=== PATIENT | female | born 1990 | race Caucasian/White ===

== ENCOUNTER 2016-11-05 22:50 | Inpatient (IN) | payer OTHER ==
--- NOTE | ~2016-11-05 | DS ---
Unit #: [id number] #: [id number] Patient: [facility]AAVEDRA [id number] [facility] [address] [place] [address] [id number] MR#: [id number] NAME: CHULA SAAVEDRA ROOM: P205 Age: 26 Sex: F Admission Date: 11/05/2016 : 1990 Discharge Date: 11/10/2016 Attending Physician: Augustus Jaeger M.D. Primary Care Physician: Primary Care Physician No DISCHARGE SUMMARY IDENTIFYING DATA Ms. Saavedra is a 26-year-old single white female, who is a resident of [place], [place] and was self-referred to the hospital on a voluntary basis. DISCHARGE DIAGNOSES Psychiatric: Major depressive disorder, recurrent, moderate, without psychotic features; methamphetamine dependence, moderate; inhalant dependence, moderate. Medical: None. Stressors: Moderate psychosocial stressors. HISTORY OF PRESENT ILLNESS Please see initial psychiatric evaluation for details. PAST PSYCHIATRIC HISTORY Please see initial psychiatric evaluation for details. PAST MEDICAL HISTORY Please see initial psychiatric evaluation for details. HOSPITAL COURSE The patient was admitted to the adult chemical dependency and psychiatric unit at [facility] j[facility] and was oriented to the hospital environment. Routine p.r.n. medications were initiated, and she was started on a combination of Celexa and BuSpar to help with the anxiety and was closely monitored. She was initially seen to be withdrawn and seclusive to herself and was not interacting or socializing very much. However, she was taking the medications regularly and was tolerating them fairly well and was able to show a decent and therapeutic response with improvement in depression and anxiety and was denying any suicidal ideations, intent or plan, and was wanting to go home and was willing to continue treatment on an outpatient basis, and as such, it was decided that she will be discharged home and will continue treatment. DISCHARGE MEDICATIONS Celexa 20 mg a day for depression and BuSpar 10 mg b.i.d. for anxiety. DISCHARGE CONDITION Stable. PROGNOSIS Fair. Unit #: [id number] #: [id number] Patient: CHULA SAAVEDRA Dictated by... Brandi Sherwood/romario TD: 11/10/2016 07:08 JOB #: [id number] DISCHARGE SUMMARY Page 1 of 1 X Augustus Jaeger MD DISCHARGE SUMMARY
--- NOTE | ~2016-11-05 | PA ---
Unit #: [id number] #: [id number] Patient: CHULA SAAVEDRA [id number] [facility] [address] [place] [address] [id number] I MR#: [id number] NAME: CHULA SAAVEDRA ROOM: P205 Age: 26 Sex: F Admission Date: 11/05/2016 : 1990 Date of Assessment: 11/06/2016 Attending Physician: Augustus Jaeger M.D. Admitting Physician: Augustus Jaeger M.D. Primary Care Physician: Primary Care Physician No PSYCHIATRIC ASSESSMENT DATE OF SERVICE 11/06/2016. IDENTIFYING DATA Ms. Saavedra is a 26-year-old single white female who is a resident of [place], [place] and was self-referred to the hospital on voluntary basis. CHIEF COMPLAINT "Today, I had a plan to jump off the bridge." HISTORY OF PRESENT ILLNESS Ms. Saavedra is a 26-year-old white female who was brought to the hospital and upon presentation, she stated that she was in a bridge and plan to jump off the bridge after an argument with her boyfriend and reports that she feels like world will be better off without her and reports she smokes methamphetamine and inhaled cans of duster and reports she smokes an 8-ball of methamphetamine on a daily basis and inhaled 2 cans of duster on daily basis and reports the last use of meth was before coming to the hospital and last use of duster was 2 days ago and the patient reports increasing depression, anxiety, irritability, restlessness, argument with her boyfriend earlier today when he told her the world will be better off without her and she reports feelings of hopelessness and helplessness, and suicidal ideation with intent and plan. SUBSTANCE ABUSE HISTORY The patient reports extensive history of substance abuse and dependence including alcohol, cannabis, and cocaine, inhalants, and methamphetamine and benzodiazepines, though it appears that currently methamphetamine and inhalants has been her drug of choice and she has been using both of them on regular basis. PAST PSYCHIATRIC HISTORY The patient has had history of inpatient psychiatric hospitalization at the [facility], at [facility] and review of the medical records indicate that she has been diagnosed and treated for mood disorder and currently she is not active in any treatment program, is not seeing a psychiatrist, and is not taking any psychotropic medications. PAST MEDICAL HISTORY No acute or chronic medical illnesses. ALLERGIES Unit #: [id number] #: [id number] Patient: CHULA SAAVEDRA No known medication allergies. CURRENT MEDICATIONS None. PERSONAL AND SOCIAL HISTORY A 26-year-old white female who reports that she lives at home with her boyfriend and is unemployed and has poor social support system. MENTAL STATUS EXAMINATION Young white female who was casually dressed with fair personal hygiene, appears to be in no acute distress or discomfort. She was awake and alert on interaction with intact orientation to time, place, and person. Her mood was anxious and depressed with a congruent affect. Her speech was slow and restricted in content. Her thought processes were disorganized with some looseness of associations and flight of ideas and suicidal ideations. Her insight and judgment remain significantly impaired. DIAGNOSTIC IMPRESSION Psychiatric: Major depressive disorder, recurrent, moderate, without psychotic features; methamphetamine dependence, moderate; inhalants dependence, moderate. Medical: None. Stressors: Moderate psychosocial stressors. TREATMENT PLAN 1. The patient has presented with history of mood disorder and substance abuse, and has been decompensating and will need inpatient hospitalization for safety and stabilization. We will start her back on her home medications. We will adjust the medications and monitor response. 2. Supportive therapy was provided to the patient. 3. Safe, structured, and nourishing environment will be provided. ESTIMATED LENGTH OF STAY 4 to 5 days. ABILITY TO HELP SELF Limited. WILLINGNESS TO HELP SELF The patient appears to be willing to help self. STRENGTHS 1. Communicative. 2. Cooperative. PROBLEMS 1. Chronic dysphoric symptoms. 2. Chronic chemical dependency. 3. Poor social support system. DISCHARGE CRITERIA This will be contingent upon the patient's ability to show resolution of her depression and anxiety as well as her ability to stay safe to herself, particularly after discharge from the hospital. Dictated by... Unit #: [id number] #: [id number] Patient: CHULA SAAVEDRA Brandi Sherwood/romario TD: 11/06/2016 13:12 JOB #: [id number] PSYCHIATRIC ASSESSMENT Page 1 of 1 X Augustus Jaeger MD X PSYCHIATRIC ASSESSMENT
--- NOTE | ~2016-11-05 | PN ---
Unit #: [id number] #: [id number] Patient: CHULA SAAVEDRA [id number] [facility] [address] [place] [address] [id number] I MR#: [id number] NAME: CHULA SAAVEDRA ROOM: P205 Age: 26 Sex: F Admission Date: 11/05/2016 : 1990 Attending Physician: Augustus Jaeger M.D. Admitting Physician: Augustus Jaeger M.D. Primary Care Physician: Primary Care Physician Delores POWERS PROGRESS NOTES DATE 11/08/2016 DISCUSSION Ms. Saavedra is a 26-year-old white female who was seen today and chart was reviewed and case was discussed with the staff. She has been anxious, withdrawn and rather seclusive to herself. Meanwhile, she has been cooperative with treatment recommendations and has been taking medications and tolerating them fairly well with no reported side effects. MENTAL STATUS EXAMINATION Young white female who was casually dressed with fair personal hygiene and appears to be in no acute distress or discomfort. She was awake and alert on interaction with intact orientation. Her mood was anxious and depressed with congruent affect. Her speech is slow and goal-directed. She denies any suicidal or homicidal ideations and also denies any auditory or visual hallucinations. Her insight and judgement remains slightly impaired. TREATMENT PLAN 1. Will continue on current medications and treatment protocol. Will monitor her response to the medications and make further adjustments as needed. 2. Will continue to follow up. Dictated by... Brandi Sherwood/ramirez TD: 11/09/2016 18:44 JOB #: [id number] Unit #: [id number] #: [id number] Patient: CHULA SAAVEDRA PROGRESS NOTES Page 1 of 1 X Augustus Jaeger MD PROGRESS NOTE
--- NOTE | ~2016-11-05 | PN ---
Unit #: [id number] #: [id number] Patient: CHULA SAAVEDRA [id number] [facility] [address] [place] [address] [id number] I MR#: [id number] NAME: CHULA SAAVEDRA ROOM: P205 Age: 26 Sex: F Admission Date: 11/05/2016 : 1990 Attending Physician: Augustus Jaeger M.D. Admitting Physician: Augusuts Jaeger M.D. Primary Care Physician: Primary Care Physician Delores ORELLANA NOTES DATE OF SERVICE: 11/07/2016 SUBJECTIVE Ms. Saavedra is a 26-year-old white female, who was seen today and chart was reviewed, and case was discussed with the staff. On approach, she was lying in her bed and was seem to be withdrawn, seclusive to herself with limited and poor eye contact. She reports not feeling any better and reports still having suicidal thoughts, she has been taking her Celexa which was just initiated without any tolerability issues. MENTAL STATUS EXAMINATION Young white female, who was casually dressed with a fair personal hygiene, appears to be in no acute distress or discomfort. She was awake and alert on interaction with intact orientation. Her mood was anxious and depressed with a congruent affect. She reports having suicidal ideation, but denies any homicidal ideations. Her insight and judgment remain slightly impaired. TREATMENT PLAN 1. We will continue her on current medications and treatment protocol. We will monitor her response to medications and make further adjustments as needed. 2. We will continue to follow up. Dictated by... Brandi Sherwood/romario TD: 11/08/2016 02:59 JOB #: [id number] Unit #: [id number] #: [id number] Patient: CHULA SAAVEDRA PRIYA ORELLANA NOTES Page 1 of 1 X Augustus Jaeger MD PROGRESS NOTE
--- NOTE | ~2016-11-05 | HP ---
Unit #: [id number] #: [id number] Patient: RENEE SAAVEDRA [id number] [place] [address] [id number] MR#: [id number] NAME: RENEE SAAVEDRA ROOM: P205 Age: 26 Sex: F Admission Date: 11/05/2016 : 1990 Attending Physician: Augustus Jaeger M.D. Admitting Physician: Augustus Jaeger M.D. Primary Care Physician: Primary Care Physician No HISTORY AND PHYSICAL HISTORY OF PRESENT ILLNESS Renee is a 26 year old admitted to [address] [place] [address] because of her continued polysubstance abuse which includes IV methamphetamine and huffy. PAST MEDICAL HISTORY 1. Long history of polysubstance abuse 2. Morbid obesity PAST SURGICAL HISTORY Nothing reported ALLERGIES No known drug allergies. SOCIAL HISTORY She smokes, drinks alcohol rarely. Admits to a history of illicit substance abuse. FAMILY HISTORY Medically noncontributory. REVIEW OF SYSTEMS CONSTITUTIONAL: No fever or chills. HEENT: Denies any sore throat, ear pain or runny nose. CARDIOVASCULAR: Denies chest pain, irregular heart rhythm or palpitations. CHEST: Denies shortness of breath or cough. No hemoptysis. GASTROINTESTINAL: Denies nausea, vomiting, diarrhea or chronic constipation. ENDOCRINE: Denies history of increased thirst or urination. No recent significant weight loss or gain. GENITOURINARY: Denies dysuria, frequency, or hematuria. SKIN: Denies any rashes. HEMATOLOGIC: Denies history of increased bleeding or bruising. MUSCULOSKELETAL: Denies any hot, swollen joints. No generalized muscle pain. NEUROLOGIC: Denies problems with vision or speech. No frequent, severe headaches. No numbness, tingling or weakness in any extremities. Denies loss of bladder or bowel control. CURRENT MEDICATIONS 1. BuSpar 10 mg b.i.d. 2. Celexa 20 mg daily Unit #: [id number] #: [id number] Patient: RENEE SAAVEDRA 3. Desyrel p.r.n. 4. Milk of Magnesia p.r.n. 5. Maalox p.r.n. 6. Tylenol p.r.n. PHYSICAL EXAMINATION GENERAL: Alert, well-nourished, in no apparent distress. VITAL SIGNS: Blood pressure 117/76, heart rate 84, respirations 16, temperature 98.6. WEIGHT: 216 pounds. HEIGHT: 5'6". SKIN: Warm and dry without rash or lesion. HEENT: Normocephalic. TMs not viewed. Oral and nasal passages clear. Conjunctivae clear. Pupils equal, round and reactive to light and accommodation. Extraocular movements intact. NECK: Supple without lymphadenopathy or thyromegaly. HEART: Regular rate and rhythm without murmur. LUNGS: Clear. ABDOMEN: Soft, nontender. : Not done. EXTREMITIES: No evidence of cyanosis, clubbing or edema. Moves all extremities without focal deficit. NEUROLOGICAL: Grossly within normal limits. Cranial Nerves: II: Visual almazan are intact. III, IV AND : Extraocular movements are intact. Pupils are equal, round and reactive to light. V: Facial sensation is grossly normal. VII: Facial movements and expression are normal. VIII: Auditory acuity grossly intact. IX, X: Uvula is midline. Phonation is normal. XI: Patient shrugs shoulders and turns head normally. XII: Tongue protrudes in the midline. Sensory and Motor Function: Sensory and motor sensation is grossly normal. Motor: moves all extremities well. Coordination: Gait is normal. Deep Tendon Reflexes: Intact. IMPRESSION Psychiatric admission RECOMMENDATIONS PSYCHIATRIC: Per psychiatrist. MEDICAL: I see no contraindications to participating in facility's activities. MEDICAL PROGNOSIS Good. MEDICAL CONDITION Stable. Dictated by... Richa Cota P.A.-C. for Brandi Reyna/atul Unit #: [id number] #: [id number] Patient: RENEE SAAVEDRA TD: 11/06/2016 21:57 JOB #: [id number] HISTORY AND PHYSICAL Page 1 of 1 X Richa Cota HISTORY AND PHYSICAL
--- NOTE | ~2016-11-05 | PN ---
Unit #: [id number] #: [id number] Patient: CHULA SAAVEDRA [id number] [facility] [address] [place] [address] [id number] I MR#: [id number] NAME: CHULA SAAVEDRA ROOM: P205 Age: 26 Sex: F Admission Date: 11/05/2016 : 1990 Attending Physician: Augustus Jaeger M.D. Admitting Physician: Augustus Jaeger M.D. Primary Care Physician: Primary Care Physician Delores POWERS PROGRESS NOTES DATE 11/09/2016 DISCUSSION Ms. Saavedra is a 26-year-old white female who was seen today and chart was reviewed and case was discussed with the staff. She has been anxious, withdrawn though has not shown any agitation, irritability and has been cooperative with treatment recommendations. MENTAL STATUS EXAMINATION Young white female who was casually dressed with fair personal hygiene, appears to be in no acute distress or discomfort. She was awake and alert on interaction with intact orientation. Her mood was anxious with congruent affect. She denies any suicidal or homicidal ideations. Her insight and judgement remains slightly impaired. TREATMENT PLAN 1. We will continue her on her current medications and treatment protocol. We will monitor her response to the medication and make further adjustments as needed. 2. We will continue to follow up. Dictated by... Brandi Sherwood/atul TD: 11/13/2016 04:29 JOB #: [id number] Unit #: [id number] #: [id number] Patient: CHULA SAAVEDRA PROGRESS NOTES Page 1 of 1 X Augustus Jaeger MD PROGRESS NOTE
[~2016-11-05 22:50] MED LIST: IBUPROFEN800 MG PO; NO MEDICATIONS; PEN-VEE K PO; ULTRACET TABLET1 TAB PO
[2016-11-10 10:42] LABS: URINE APPEARANCE CLEAR; URINE BILIRUBIN NEG (NEG); URINE BLOOD NEG (NEG); URINE COLOR YELLOW; URINE GLUCOSE NEG (NEG); URINE KETONE NEG (NEG); URINE LEUKOCYTE ESTERASE NEG (NEG); URINE NITRATE NEG (NEG); URINE PROTEIN NEG (NEG); URINE UROBILINOGEN 0.2 MG/DL (NEG)
[2016-11-10 10:55] LABS: AMPHETAMINE NEG (NEG); BARBITURATES NEG (NEG); BENZODIAZEPINES NEG (NEG); COCAINE NEG (NEG); MARIJUANA NEG (NEG); OPIATES NEG (NEG); TRICYCLIC ANTIDEPRESSANTS NEG (NEG); U METHADONE NEG (NEG)
== END 2016-11-10 13:02 | DRG 885 ==
LOC: P2S 22:50
PROVIDERS: Psychiatry & Neurology Psychiatry
DX: F33.1 Major depressive disorder, recurrent, moderate (principal); F15.20 Other stimulant dependence, uncomplicated; F18.20 Inhalant dependence, uncomplicated; F41.9 Anxiety disorder, unspecified; F17.210 Nicotine dependence, cigarettes, uncomplicated; E66.01 Morbid (severe) obesity due to excess calories
CPT/HCPCS: 80307; 81003